=== PATIENT | male | born 1980 | race Caucasian/White ===

== ENCOUNTER 2016-08-24 13:25 | Emergency (ER) | payer MEDICAID ==
[2016-08-24 14:09] LABS: BASOPHILS 0.6 % (0.0-2.0); EOSINOPHILS 2.3 % (0-7); HEMATOCRIT 41.6 % (42.0-54.0); IMMATURE GRANULOCYTES 0.2 % (0-5); LYMPHOCYTES 38.5 % (15-50); MCH 30.3 pg (26.0-34.0); MCHC 33.7 g/dL (31.0-37.0); MEAN PLATELET VOLUME 10.6 fL (7.4-10.4); MONOCYTES 12.5 % (2-11); NEUTROPHILS 45.9 % (40-80); PLATELET COUNT 146 10x3/uL (130-400); RBC 4.62 10x6/uL (4.20-6.10); WBC 6.5 10x3/uL (4.8-10.8)
[2016-08-24 14:25] LABS: ALKALINE PHOSPHATASE 75 U/L (46-116); ALT (SGPT) 26 U/L (10-68); BILIRUBIN - TOTAL 0.48 mg/dL (0.2-1.3); CALC OSMOLALITY 279 mosm/kg (275-300); CALCIUM 8.5 mg/dL (8.5-10.1); CARBON DIOXIDE 25.8 mmol/L (21.0-32.0); CHLORIDE - SERUM 105 mmol/L (98-107); CREATININE - SERUM 1.1 mg/dL (0.6-1.3); GLUCOSE 102 mg/dL (74-106); PROTEIN - SERUM 7.2 g/dL (6.4-8.2); SODIUM 141 mmol/L (136-145); UREA NITROGEN 10 mg/dL (7-18); eGFR NON AFRICAN AMERICAN 80 mL/min (90-120)
[2016-08-24 14:35] LABS: CHOL - HDL RATIO 5.5 ratio (2.3-4.9); CHOLESTEROL, TOTAL 169 mg/dL (0-200); CKMB 0.8 U/L (0.0-3.6); CREATINE KINASE 130 UL (21-232); HDL CHOLESTEROL 31 mg/dL (32-96); LDL CHOLESTEROL 85 mg/dL (0-100); LDL-HDL RATIO 2.7 ratio (1.5-3.5); TRIGLYCERIDE 268 mg/dL (30-200)
[2016-08-24 14:36] LABS: TROPONIN-I < 0.017 ng/mL (0.000-0.060)
== END 2016-08-24 18:01 | disposition home or self-care (01) ==
LOC: D.ER 13:25
PROVIDERS: Emergency Medicine
DX: R07.89 Other chest pain (principal); I10 Essential (primary) hypertension; F43.10 Post-traumatic stress disorder, unspecified

== ENCOUNTER 2016-11-29 11:58 | Emergency (ER) | payer MEDICAID | END 2016-11-29 14:40 | disposition home or self-care (01) | LOC: D.ER 11:58 | DX: M25.511 Pain in right shoulder (principal); M75.51 Bursitis of right shoulder; M62.838 Other muscle spasm; I10 Essential (primary) hypertension; F43.10 Post-traumatic stress disorder, unspecified ==

== ENCOUNTER → 2016-12-28 10:32 | Outpatient (CLI) | payer MEDICAID | END | disposition home or self-care (01) | LOC: D.MRI 10:32 | DX: M75.41 Impingement syndrome of right shoulder (principal); M25.511 Pain in right shoulder ==

== ENCOUNTER 2017-01-06 22:47 | Emergency (ER) | payer MEDICAID ==
[2017-01-06 23:35] LABS: HEMATOCRIT 41.9 % (42.0-54.0); HEMOGLOBIN 14.6 g/dL (13.5-17.5); LYMPHOCYTES 35.6 % (15-50); MCH 30.6 pg (26.0-34.0); MCHC 34.8 g/dL (31.0-37.0); MCV 87.8 fL (80.0-100.0); MEAN PLATELET VOLUME 10.4 fL (7.4-10.4); NEUTROPHILS 56.2 % (40-80); PLATELET COUNT 147 10x3/uL (130-400); RBC 4.77 10x6/uL (4.20-6.10); WBC 8.3 10x3/uL (4.8-10.8)
[2017-01-06 23:57] LABS: ALBUMIN 3.8 g/dL (3.4-5.0); ALKALINE PHOSPHATASE 77 U/L (46-116); CALC OSMOLALITY 281 mosm/kg (275-300); CALCIUM 8.3 mg/dL (8.5-10.1); CARBON DIOXIDE 29.2 mmol/L (21.0-32.0); CHLORIDE - SERUM 102 mmol/L (98-107); CKMB 0.3 U/L (0.0-3.6); CREATINE KINASE 119 UL (21-232); CREATININE - SERUM 1.1 mg/dL (0.6-1.3); GLUCOSE 113 mg/dL (74-106); POTASSIUM - SERUM 3.6 mmol/L (3.5-5.1); PROTEIN - SERUM 7.2 g/dL (6.4-8.2); SODIUM 140 mmol/L (136-145); UREA NITROGEN 17 mg/dL (7-18); eGFR NON AFRICAN AMERICAN 79 mL/min (90-120)
[2017-01-06 23:59] LABS: ALT (SGPT) 61 U/L (10-68); TROPONIN-I < 0.017 ng/mL (0.000-0.060)
== END 2017-01-07 01:20 | disposition home or self-care (01) ==
LOC: D.ER 22:47
PROVIDERS: Family Medicine
DX: M75.101 Unspecified rotator cuff tear or rupture of right shoulder, not specified as traumatic (principal); M79.1 Myalgia; R20.0 Anesthesia of skin; F17.200 Nicotine dependence, unspecified, uncomplicated; I10 Essential (primary) hypertension; F43.10 Post-traumatic stress disorder, unspecified

== ENCOUNTER 2017-01-18 05:20 | Day surgery (SDC) | payer MEDICAID ==
[2017-01-14 13:41] LABS: HEMATOCRIT 43.7 % (42.0-54.0); HEMOGLOBIN 14.9 g/dL (13.5-17.5); MCH 30.5 pg (26.0-34.0); MCHC 34.1 g/dL (31.0-37.0); MCV 89.5 fL (80.0-100.0); MEAN PLATELET VOLUME 10.2 fL (7.4-10.4); RBC 4.88 10x6/uL (4.20-6.10); RDW 14.2 % (11.5-14.5); WBC 5.9 10x3/uL (4.8-10.8)
[~2017-01-18] VITALS: Ht 172.7 cm; Wt 94.8 kg
--- NOTE | ~2017-01-18 | OP ---
PATIENT NAME: CM WYATT MEDICAL RECORD: [id number] :76 LOCATION:D.OPS ADMISSION DATE: SURGEON: YINA NAVARRO MD DATE OF OPERATION: 01/18/2017 Orthopedic Surgery Operative Note PREOPERATIVE DIAGNOSIS: Rotator cuff tear with impingement syndrome of the right shoulder well as a acromioclavicular arthritis POSTOPERATIVE DIAGNOSES: 1. Rotator cuff tear with impingement syndrome of the right shoulder well as a acromioclavicular arthritis. 2. SLAP lesion primarily at the bicipital labral junction with the labrum. PROCEDURES: 1. Arthroscopic rotator cuff repair. 2. Biceps tenodesis. 3. Subacromial decompression, acromioplasty and bursectomy. 4. Distal clavicle excision. SURGEON: Yina Navarro MD ANESTHESIA: General. INTRAOPERATIVE COMPLICATIONS: None. SUMMARY OF PATHOLOGIC FINDINGS: Consistent with the preoperative MRI, the patient had full thickness rotator cuff tearing type III acromion, acromioclavicular arthritis and the patient also had the findings as noted above. This was essentially a biceps tear off the labrum. The labrum remained very well attached. However, the bicep root itself was torn essentially 75%, as well as the patient had severe biceps tendinitis. For this reason, the decision was made to carry on with the biceps tenodesis. OPERATIVE SUMMARY IN DETAIL: After obtaining the appropriate preoperative orthopedic surgery consent as well as anesthetic consultation, evaluation and clearance, the patient was brought to the operating room and placed on the operating table in supine position. After general laryngeal mask airway was administered, the patient was placed in a left lateral decubitus position. All pressure points were well padded to include down leg peroneal pad as well as axillary roll. The patient was held firmly to the operating table using the vacuum pack suction system. Right upper extremity and shoulder were prepped and draped in routine sterile fashion. The arm was held in the Arthrex traction boom at 30 degrees of forward flexion, 30 degrees of abduction with 10 pounds of traction laterally. Arthroscopy was established in the glenohumeral joint from a posterior portal. Anterior portal was established in the anterior safe interval. Diagnostic arthroscopy did reveal the patient to have the above findings, essentially the biceps was almost completely torn off of its origin point at the labrum. Attention was turned to the subacromial space where the [place] tissue ablation system was utilized to denude the undersurface of the acromion of all soft tissue elements and release coracoacromial ligament. A 5-0 barrel veda was used to perform acromioplasty at the level of acromioclavicular joint and then through a separate anterior arthroscopic portal under direct arthroscopic visualization, distal clavicle was excised for 1 cm. Having OPERATIVE REPORT [id number] CM WYATT completed this, the biceps tendon was isolated. A small incision was utilized to isolate the distal aspect of the biceps tendon that had been cut from this anchor, it was then brought out and a FiberLoop was utilized to place a stitch in the biceps tendon itself. The access biceps tendon was then removed and then the guidewire for the 8 mm Arthrex tenodesis screw was utilized and gave for good suture anchoring of the biceps tendon at the mid portion of the bicipital groove. Having completed this, the sutures from the 8.0 mm biceps tenodesis screw were utilized to place a single [id number] suture anchor in the rotator cuff and tied this down. Next, a 2.0 labral tape was then utilized [id number] and then anchored firmly anteriorly to the previous suture anchor completing the rotator cuff repair. Having completed this, arthroscopy portals were closed in routine interrupted fashion using 4-0 Prolene. Sterile dressings were applied. The patient was awakened, taken to recovery room in stable condition. All final needle and sponge counts were correct. TRANSINT:[id number] Voice Confirmation ID: [id number] DOCUMENT ID: [id number] YINA NAVARRO MD CC: [id number] DICTATION DATE: 01/18/171732 SPORTS BOOK WRITER: 01/18/17 2255 [facility] 01/18/17 [place] [id number]
[~2017-01-18 05:20] MED LIST: HYDROCODONE-APA1 TAB PO; LISINOPRIL5 MG PO; PROPRANOLOL HCL20 MG PO; SOMA350 MG PO; XANAX1 MG PO
[2017-01-18 12:33] VITALS: BP 128/82; Ht 172.7 cm; Wt 94.8 kg
[2017-01-18] MEDS ORDERED: PERCOCET 10/3251 TA1 PO (15:25)
--- NOTE | 2017-01-18 17:14 | NUR ---
DISCHARGE INSTRUCTIONS REVIEWED WITH PATIENT AND SPOUSE, DISCHARGED HOME VIA WHEELCHAIR TO PRIVATE VEHICLE WITH SPOUSE
== END 2017-01-18 17:14 | disposition home or self-care (01) ==
LOC: D.OPS 05:20 → D.PAN 17:45 → D.OPS 17:45
PROVIDERS: Anesthesiology
DX: M75.121 Complete rotator cuff tear or rupture of right shoulder, not specified as traumatic (principal); M75.41 Impingement syndrome of right shoulder; M13.811 Other specified arthritis, right shoulder; S43.431A Superior glenoid labrum lesion of right shoulder, initial encounter; Z01.812 Encounter for preprocedural laboratory examination

== ENCOUNTER 2017-10-02 10:09 | Emergency (ER) | payer BC ==
[2017-01-18 12:33] VITALS: BMI 31.8
[~2017-10-02 10:09] MED LIST changes: +PERCOCET 10/3251 TA1 PO
[2017-10-02 10:39] LABS: APPEARANCE CLEAR (CLEAR); BILIRUBIN NEGATIVE (NEGATIVE); COLOR YELLOW (YELLOW); GLUCOSE NEGATIVE (NEGATIVE); KETONE NEGATIVE (NEGATIVE); NITRITE NEGATIVE (NEGATIVE); PROTEIN NEGATIVE (NEGATIVE); UROBILINOGEN NORMAL (NORMAL)
[2017-10-02 10:42] LABS: BASOPHILS 0.6 % (0-2); EOSINOPHILS 3.4 % (0-7); HEMATOCRIT 44.8 % (42.0-54.0); HEMOGLOBIN 15.3 g/dL (13.5-17.5); IMMATURE GRANULOCYTES 0.1 % (0-5); LYMPHOCYTES 36.8 % (15-50); MCH 30.4 pg (26.0-34.0); MCHC 34.2 g/dL (31.0-37.0); MCV 88.9 fL (80.0-100.0); MEAN PLATELET VOLUME 10.5 fL (7.4-10.4); MONOCYTES 9.2 % (2-11); NEUTROPHILS 49.9 % (40-80); PLATELET COUNT 149 10x3/uL (130-400); RBC 5.04 10x6/uL (4.20-6.10)
[2017-10-02 10:58] LABS: ALBUMIN 3.4 g/dL (3.4-5.0); ANION GAP 16.4 mmol/L (8-16); BILIRUBIN - TOTAL 0.39 mg/dL (0.2-1.3); CALCIUM 8.1 mg/dL (8.5-10.1); CARBON DIOXIDE 22.1 mmol/L (21.0-32.0); CREATININE - SERUM 1.2 mg/dL (0.6-1.3); POTASSIUM - SERUM 3.5 mmol/L (3.5-5.1); PROTEIN - SERUM 6.7 g/dL (6.4-8.2)
[2017-10-02 11:50] LABS: AMYLASE - SERUM 37 U/L (25-115); LIPASE 133 U/L (73-393)
== END 2017-10-02 12:47 | disposition home or self-care (01) ==
LOC: D.ER 10:09
PROVIDERS: Emergency Medicine; Nurse Practitioner Family
DX: M54.5 Low back pain (principal); S39.012A Strain of muscle, fascia and tendon of lower back, initial encounter; X58.XXXA Exposure to other specified factors, initial encounter; Y93.89 Activity, other specified; Y92.89 Other specified places as the place of occurrence of the external cause; I10 Essential (primary) hypertension; F17.200 Nicotine dependence, unspecified, uncomplicated